=== PATIENT | male | born 1950 | race Two or more races ===

== ENCOUNTER 2024-12-28 15:03 | Emergency (ER) | payer OTHER ==
[~2024-12-28] VITALS: Ht 177.8 cm; Wt 83.9 kg
[2024-12-28] MEDS ORDERED: CEFTRIAXONE SODIUM 1,000 MG VIAL IM ONE (17:45)
[2024-12-28] MEDS ORDERED: KETOROLAC TROMETHAMINE 30 MG VIAL IM ONE (17:45)
== END 2024-12-28 21:54 | disposition home or self-care (01) ==
LOC: ER 15:04
DX: H66.91 Otitis media, unspecified, right ear (principal); W54.0XXA Bitten by dog, initial encounter; M25.562 Pain in left knee
CPT/HCPCS: 96372; 99282; J0696; J1885